=== PATIENT | male | born 1965 | race Caucasian/White ===

== ENCOUNTER 2016-08-13 22:28 | Emergency (ER) | payer OTHER, BC ==
[~2016-08-13] VITALS: Ht 172.7 cm; Wt 104.8 kg
--- OUTSIDE RECORDS SUMMARY | 2016-08-13 22:31 | XMS REPORT | Continuity of Care Document ---
Author Author [facility] Organization [facility] Address Unknown Phone Unavailable Allergies Active Description Code Type Severity Reaction Onset Reported/Identified Relationship to Patient Clinical Status Yes No Known Allergies No Known Allergies Drug Allergy Unknown N/A 10/06/2015 Medications Problems Procedures Results Test Result Range CBC W/DIFF - 10/06/15 19:20 EOSINOPHIL # 0.4 k/cumm 0.1-0.5 EOSINOPHIL % 5 % 2-4 GRANULOCYTE # 4.4 k/cumm 2.0-9.0 GRANULOCYTE % 63 % 50-75 LYMPHOCYTE # 1.7 k/cumm 1.0-4.0 LYMPHOCYTE % 24 % 20-30 MEAN CELL HGB 30.7 pg 27.0-33.0 MEAN CELL HGB CONCENTRATION 35.3 g/dL 32.0-37.0 MEAN CELL VOLUME 86.8 fl 80.0-100.0 MONOCYTE # 0.6 k/cumm 0.1-1.0 MONOCYTE % 8 % 4-6 RED BLOOD CELL 5.22 m/cumm 4.00-6.00 RED CELL DISTRIBUTION WIDTH 14.0 % 11.0- 15.6 WHITE BLOOD CELL 7.0 k/cumm 5.0-10.0 HEMOGLOBIN 16.0 gm/dL 14.0-18.0 HEMATOCRIT 45.3 % 40.0-54.0 PLATELET COUNT 228 k/cumm 150-450 D-DIMER QUANT - 10/06/15 19:20 D-DIMER QUANT 158 ng/mL 0-229 CHEM/HEM PROFILE-BEDSIDE - 10/06/15 19:38 POTASSIUM 3.9 mmol/L 3.5-5.3 METHOD Bedside ANION GAP 20 mmol/L 10-20 METHOD Bedside GLUCOSE 170 mg/dL 70-99 BLOOD UREA NITROGEN 15 mg/dL 7-20 CREATININE 0.8 mg/dL 0.7-1.3 HEMOGLOBIN 16.0 gm/dL 14.0-18.0 HEMATOCRIT 47.0 % 40.0-54.0 SODIUM 140 mmol/L 135-148 CHLORIDE 107 mmol/L 98-110 CARBON DIOXIDE 19 mmol/L 21-32 CALCIUM IONIZED 4.6 mg/dL 4.5-5.3 TROPONIN I BEDSIDE - 10/06/15 20:00 METHOD Bedside TROPONIN I < 0.04 ng/mL < 0.11 Encounters ACCT No. Visit Date/Time Discharge Status Pt. Type Provider Facility Loc./Unit Complaint [id number] 10/06/2015 18:39:00 2015 21:08:00 DIS Emergency Madelin PURDY, [facility] E.ED [id number] 02/03/2015 19:37:00 2014 21:30:00 DIS Emergency Derrick PURDY, [facility] E.ED [id number] 11/11/2014 21:01:00 2014 22:20:00 DIS Emergency Angi PURDY, Seng Sanders [facility] E.ED
[2016-08-13 22:48] VITALS: Ht 172.7 cm; Wt 104.8 kg
[2016-08-13] MEDS ORDERED: NO MEDICATIONS (22:53)
--- NOTE | 2016-08-13 22:57 | ERPDOC ---
Departure Disposition Decision Date: Aug 14, 2016 Disposition Decision Time: 00:11 (SIRENA DEVLIN APRN) Disposition: 01 DISCHARGED HOME, SELF-CARE Impression Impression (SIRENA DEVLIN APRN) Impression: Primary Impression: Fracture of radius Encounter type: initial encounter Radius location: shaft Fracture type: closed Fracture morphology: spiral Fracture alignment: nondisplaced Laterality: right Qualified Codes: S52.344A - Nondisplaced spiral fracture of shaft of radius, right arm, initial encounter for closed fracture Additional Impression: Right groin pain Severity: Moderate (SIRENA DEVLIN APRN) Condition: Improved Seen By: Mid-level only (SIRENA DEVLIN APRN) Referrals: Evette MOSES MD (Family) KATRINA GARCIA MD Patient Instructions: Arm Fracture in Adults (ED) Problems/Meds/Labs Reviewed?: Yes Medications reviewed and manag: Yes (SIRENA DEVLIN APRN) Additional Instructions: You have a fracture of your radius bone in your arm. Wear splint as directed. You may loosen greer wrap to allow for swelling. Keep arm elevated and iced for next 48 hours. You may take norco 5/325mg, 1-2 tabs every 4-6 hours for pain. You may take ibuprofen 800mg every 8 hours with food for pain. Call [facility] orthopedics tomorrow for follow up appointment. Please let them know we spoke with Lencho GRAY from the ED. Follow treatment plan. Follow up care ordered?: Yes Mental Status: Alert, Oriented (SIRENA DEVLIN APRN) Scripts Hydrocodone/Acetaminophen ([place] 5-325 Tablet) 5-325 Tablet 1-2 TAB PO Q4-6HPRN, #30 TAB Prov: SIRENA DEVLIN APRN 08/14/16 HPI - Upper Extremity General Chief Complaint: Upper Extremity Injury Stated Complaint: RT WRIST INJURY Time Seen by MD: 22:55 Source: patient (SIRENA DEVLIN APRN) HPI - Upper Extremity Initial Comments 50 YO M presents to ED with right wrist and forearm pain. Patient was at work when this evening when something slipped on a machine striking patient on right wrist forearm and right groin area. Pain/Severity Scale: Now: 7/10 Pain/Injury Location: right forearm, right wrist Method of Injury/Context: direct blow Quality: aching (SIRENA DEVLIN APRN) Allergies: Coded Allergies: No Known Allergies (Unverified , 08/13/16) Past History Past Medical History Pt denies signifigant PMH (SIRENA DEVLIN ILLUSIONIST) Surgical History Denies Surgeries (SIRENA DEVLIN APRN) Family History Family PMH: FOUND: other (noncontributory) (SIRENA DEVLIN ILLUSIONIST) Social History Sexuality: female partner Current Occupational Status: employed (SIRENA DEVLIN APRN) Review of Systems Constitutional Constitutional: DENIES: chills, dizziness, fever, weakness (DARWIN DEVLINS A ILLUSIONIST) Eyes General: DENIES: erythema, exudate Lids/Accessories: DENIES: erythema, swelling (SIRENA DEVLIN ILLUSIONIST) ENMT Ears: DENIES: pain Sinuses: DENIES: congestion, rhinorrhea Mouth/Throat: DENIES: sore throat (DARWIN DEVLINS A ILLUSIONIST) Cardiovascular Cardiac: DENIES: chest pain, murmur (DARWIN DEVLINS A ILLUSIONIST) Pulmonary Respiratory: DENIES: cough, dyspnea (DARWIN DEVLINS A ILLUSIONIST) GI Upper Abdomen: DENIES: nausea, pain, vomiting Lower Abdomen: DENIES: diarrhea, pain (DARWIN DEVLINS A ILLUSIONIST) General: DENIES: dysuria, pain (DARWIN DEVLINS A ILLUSIONIST) Musculoskeletal General: joint pain, see HPI, tenderness (DARWIN DEVLINS A ILLUSIONIST) Integumentary Skin: DENIES: color change, itching, rash (DARWIN DEVLINS A ILLUSIONIST) Neurological General: DENIES: ataxia, change in strength, numbness, paralysis/paresis, weakness (DARWIN DEVLINS A ILLUSIONIST) Psychiatric Psychiatric: DENIES: anxiety, depression, nervousness (DARWIN DEVLINS A ILLUSIONIST) Physical Exam General General Nourishment: well nourished, well developed, adult General Body Habitus: disheveled (DARWIN DEVLINS A ILLUSIONIST) Vitals and Pain First Documented Vital Signs Date Time Temp Pulse Resp B/P Pulse Ox O2 Delivery O2 Flow Rate FiO2 08/13/16 22:48 97.5 96 16 187/112 96 Room Air (OTIS DOMINGUEZ MD) Vitals and Pain Weight: Kilograms: Height (feet): Height (inches): Triage Pain Scale: (DEVLIN,SIRENA A ILLUSIONIST) Eyes (brief) Eyes Brief: found: EOMI (CLAUS,SIRENA A ILLUSIONIST) ENMT (brief) ENMT Brief: NOT FOUND: nasal exudate, nasal swelling (DEVLIN,SIRENA A ILLUSIONIST) Neck (brief) Neck: FOUND: trachea midline (DEVLIN,SIRENA A ILLUSIONIST) Respiratory (brief) Respiratory: FOUND: clear all johnson, equal bilaterally, symmetrical (CLAUS SIRENA A ILLUSIONIST) Cardiovascular Auscultation: FOUND: S1, S2 (DEVLINSIRENA A ILLUSIONIST) Abdomen Inspection: NOT FOUND: distention, other (no ecchymosis or erythema) Palpation: FOUND: soft, NOT FOUND: tender (DARWIN DEVLINS A ILLUSIONIST) Musculoskeletal Joint : Side: Right Joint: hip Joint Findings: FOUND: pain (Pain in groin ), NOT FOUND: ROM limited, deformity, discoloration, instability, swelling (DARWIN DEVLINS A ILLUSIONIST) Fastrak Hand/Forearm Hand/Forearm : Upper Extremity: Right Elbow: extension intact, flexion intact, NOT FOUND: deformity, ecchymosis, erythema, swelling, tender Forearm: pronation intact, supination intact, swelling, tender (TTP over mid and distal radius and ulna), NOT FOUND: ecchymosis, erythema Wrist: ROM intact, tender (TTP over radius and ulna), NOT FOUND: deformity, ecchymosis, erythema, snuff box tenderness, swelling, thenar eminence tender Hand: NOT FOUND: deformity, ecchymosis, erythema, swelling, tender Fingers: cap refill <2sec ea digit, soft touch intact, NOT FOUND: deformity , ecchymosis, erythema, impaired abduction, impaired adduction, impaired extension, impaired flexion, impaired grasp, laceration, nail avulsion, rotational deformity, subungual hematoma, swelling, tender Radial Pulse: 2+ (DEVLIN,SIRENA A ILLUSIONIST) Integumentary (brief) Integumentary Brief: FOUND: dry, pink, warm (DEVLIN,SIRENA A ILLUSIONIST) Neurologic (brief) Neurological Brief: FOUND: motor-no gross deficits, sensory-no gross deficits ( DEVLINSIRENA A ILLUSIONIST) Psychiatric (brief) Psychiatric Brief: FOUND: alert, normal affect, oriented (DARWIN DEVLINS A ILLUSIONIST ) Differential Diagnoses Considering: Contusion, Dislocation, Fracture, Sprain, Strain (SIRENA DEVLIN APRN) Procedures Procedures Performed Procedures Performed: Splinting (SIRENA DEVLIN APRN) Splinting Procedure Splint : Pre-placement NV: FOUND: cap refill < 3 sec, good sensation Hand-Made Type: orthoglass Splint: sugar-tong Post-placement NV: FOUND: cap refill < 3 sec, good sensation Applied by: PA/MONTSERRAT (SIRENA DEVLIN APRN) Progress Results/Orders Orders Procedure Category Date Status Time Hydromorphone PHA 08/13/16 Complete (Dilaudid) 23:15 Wrist Right 3-4 Views RAD 08/13/16 Resulted Radius/Ulna Right 2 RAD 08/13/16 Resulted View Pelvis 1-2 View RAD 08/13/16 Resulted Dedicated Pelv Lorazepam (Ativan) PHA 08/14/16 Complete 00:15 Ketorolac (Toradol) PHA 08/14/16 Complete 00:45 Hydrocodone/Apap PHA 08/14/16 Complete 5/325 Prepack ([place] 5 00:45 (OTIS DOMINGUEZ MD) Medications Current ED Medications Hydromorphone HCl (Dilaudid) 1 mg O ONCE IM Last administered on 08/13/16 23: 11; Start 08/13/16 at 23:15; Stop 08/13/16 at 23:16; Status DC Lorazepam (Ativan) 0.5 mg O ONCE PO Last administered on 08/14/16 00:13; Start 08/14/16 at 00:15; Stop 08/14/16 at 00:16; Status DC Ketorolac Tromethamine (Toradol) 60 mg O ONCE IM Last administered on 01:00; Start 08/14/16 at 00:45; Stop 08/14/16 at 00:46; Status DC Acetaminophen/ Hydrocodone Bitart (NORCO 5 (PrePack)) 1 pack O ONCE SENT HOME Last administered on 08/14/16 01:06; Start 08/14/16 at 00:45; Stop 08/14/16 at 00:46; Status DC (OTIS DOMINGUEZ MD) Progress Progress Patient is neurovascularly intact. Denies numbness or tingling to forearm/hand or finger. (SIRENA DEVLIN APRN) Progress Discussed case with Lencho Welsh, final radiology read is anatomical variant, no fracture identified. Patient was exquisitely tender to palpation at that site, Lencho we'll reevaluate upon examination and make further recommendations to the patient. No current change in treatment due to severe pain. (OTIS DOMINGUEZ MD) Consult/PCP Consult/PCP : Physician Contacted: Lencho Ernst Type of discussion: Phone Consult/PCP Discussion Details I discussed patient HPI, PMH, exam findings, x-rays, and that patient is neurovascularly intact with Lencho Francis. Lencho states patient may follow in office for reevaluation agrees with treatment plan. (SIRENA DEVLIN APRN) Xray Xray #1: Xray: Wrist R Interpretation: Normal (Dr. Rodriguez) Xray #2: Xray: Radius/Ulna R (spiral fracture of radius (Dr. Rodriguez)) Xray #3: Xray: Pelvis Interpretation: Normal (Dr. Rodriguez) (SIERNA DEVLIN APRN) SIRENA DEVLIN APRN Aug 13, 2016 22:57 OTIS DOMINGUEZ MD Aug 14, 2016 09:49
[2016-08-13] MEDS ORDERED: HYDROMORPHONE 2mg/ml INJECTION IM ONE (23:15)
--- OUTSIDE RECORDS SUMMARY | 2016-08-13 23:21 | XMS REPORT | Continuity of Care Document ---
Author Author [facility] Organization [facility] Address Unknown Phone Unavailable Allergies Active [...] Status Pt. Type Provider Facility Loc./Unit Complaint [id number] 10/06/2015 18:39:00 2015 21:08:00 DIS Emergency Madelin PURDY, [facility] E.ED [id number] 02/03/2015 19:37:00 2014 21:30:00 DIS Emergency Derrick PURDY, [facility] E.ED [id number] 11/11/2014 21:01:00 2014 22:20:00 DIS Emergency Angi PURDY, Seng Sanders [facility] E.ED
[2016-08-14] MEDS ORDERED: LORAZEPAM 0.5 MG TABLET PO ONE (00:15)
[2016-08-14] MEDS ORDERED: KETOROLAC 60mg/2ml INJECTION IM ONE (00:45)
[2016-08-14] MEDS ORDERED: HYDROCODONE/APAP 5/325 (PrePack) SENT HOME ONE (00:45)
[2016-08-14] MEDS ORDERED: HYDR-4246 PO (00:46)
[2016-08-14 01:06] VITALS: BP 175/94; PULSE 88; RESP 16; TEMP 97.5; O2SAT 96
--- NOTE | 2016-08-14 08:02 | DI ---
Indication: ITS.REASON: pain right groin PROCEDURE: PELVIS 1-2 VIEW DEDICATED PELV: Encounter: Initial Comparison: None Findings: There is no acute fracture, dislocation or malalignment identified. Impression: No acute osseous abnormality. .
--- NOTE | 2016-08-14 08:03 | DI ---
Indication: ITS.REASON: pain over radius and ulna PROCEDURE: WRIST RIGHT 3-4 VIEWS: Encounter: Initial Comparison: None Findings: There is no acute fracture, dislocation or malalignment identified. Impression: No acute osseous abnormality. .
--- NOTE | 2016-08-14 08:05 | DI ---
Indication: ITS.REASON: pain over radius and ulna PROCEDURE: RADIUS/ULNA RIGHT 2 VIEW: Encounter: Initial Comparison: None Findings: There is no acute fracture, dislocation or malalignment identified. Tiny rounded density in the ventral soft tissues adjacent to the mid radius could represent a small calcification or foreign body. Nutrient foramen noted in the proximal radius. Impression: No acute osseous abnormality. .
== END 2016-08-14 01:06 | disposition home or self-care (01) ==
LOC: ED 22:28
DX: S52.344A Nondisplaced spiral fracture of shaft of radius, right arm, initial encounter for closed fracture (principal); R10.31 Right lower quadrant pain; W22.8XXA Striking against or struck by other objects, initial encounter; Y93.89 Activity, other specified; Y92.9 Unspecified place or not applicable; Y99.0 Civilian activity done for income or pay
CPT/HCPCS: 29125; 72170; 73090; 73110; 96372; 99283; J1170; J1885

== ENCOUNTER → 2016-08-21 | Outpatient (CLI) | payer OTHER, BC ==
[~2016-08-21] MED LIST: HYDR-4246 PO; NO MEDICATIONS
--- NOTE | 2016-08-21 11:04 | DI ---
Indication: ITS.REASON: S49.91XA INJURY PROCEDURE: MRI SHOULDER RIGHT W/O CONTRAS: Encounter: Initial Comparison: None Technique: Multiplanar multisequence MR imaging of the right shoulder was performed without contrast. Findings: Mild to moderate motion artifact. The long head biceps tendon appears grossly intact and located. Subscapularis tendon is intact. There is a small rim rent tear of the supraspinatus insertion with mild associated tendinopathy. No full-thickness or complete tear identified. The infraspinatus shows mild tendinopathy but no discrete tear. The teres minor tendon is intact. No acute fracture. Mild acromioclavicular degenerative change. No fluid in the subacromial subdeltoid bursa. There is suggestion of mild degenerative fraying of the anteroinferior labrum with tiny humeral head osteophytes. Muscular bulk and signal intensity is within normal limits. Impression: 1. Rim rent tear of the supraspinatus. 2. Mild degenerative fraying of the anteroinferior labrum. .
== END ==
LOC: IMA 09:34
PROVIDERS: ATTEND Orthopaedic Surgery
DX: S46.011A Strain of muscle(s) and tendon(s) of the rotator cuff of right shoulder, initial encounter (principal); M24.811 Other specific joint derangements of right shoulder, not elsewhere classified; M19.011 Primary osteoarthritis, right shoulder; W31.89XA Contact with other specified machinery, initial encounter; Y93.89 Activity, other specified; Y92.69 Other specified industrial and construction area as the place of occurrence of the external cause; Y99.0 Civilian activity done for income or pay